=== PATIENT | male | born 1945 | race Caucasian/White ===

== ENCOUNTER 2017-09-14 15:00 | Inpatient (IN) | payer MEDICARE, OTHER ==
[~2017-09-14] VITALS: Ht 177.8 cm; Wt 82.1 kg
[2017-09-14 18:48] VITALS: BP 166/88
[2017-09-14] MEDS ORDERED: MAGNESIUM HYDROXIDE 30 ML LIQUID UDC PO PRN (19:00)
[2017-09-14] MEDS ORDERED: LORAZEPAM 0.5 MG TABLET PO PRN (19:15)
[2017-09-14] MEDS ORDERED: TEMAZEPAM 7.5 MG CAPSULE PO PRN (19:15)
[2017-09-14] MEDS ORDERED: CLONIDINE HCL 0.1 MG TABLET PO PRN (20:45)
[2017-09-14 21:00] VITALS: BP 150/98
[2017-09-14] MEDS: METOPROLOL TARTRATE 25 MG TABLET PO SCH (21:00)
[2017-09-15] MEDS: ACETAMINOPHEN 325 MG TABLET PO PRN (06:45)
[2017-09-15 07:30] VITALS: BP 135/71
[2017-09-15 07:33] LABS: BASOPHILS % (AUTO) 0.2 % (0.0-2.0); EOSINOPHILS % (AUTO) 0.8 % (0.0-7.0); HEMATOCRIT 44.4 % (36.7-47.1); HEMOGLOBIN 15.4 g/dL (12.5-16.3); LYMPHOCYTES # (AUTO) 0.8 K/uL (20.0-40.0); LYMPHOCYTES % (AUTO) 12.6 % (20.5-51.5); MEAN CORPUSCULAR HEMOGLOBIN 35.8 uug (23.8-33.4); MEAN CORPUSCULAR HGB CONC 35 g/dL (32.5-36.3); MEAN CORPUSCULAR VOLUME 103.2 fL (73.0-96.2); MONOCYTES # (AUTO) 0.7 K/uL (2.0-10.0); MONOCYTES % (AUTO) 11.5 % (0.0-11.0); NEUTROPHILS # (AUTO) 4.5 K/uL (1.8-8.9); NEUTROPHILS % (AUTO) 74.9 % (38.5-71.5); PLATELET COUNT (AUTO) 207 K/uL (152-348)
[2017-09-15 07:36] LABS: THYROID STIMULATING HORMONE 1.896 mIU/mL (0.358-3.740)
[2017-09-15 08:03] LABS: ALANINE AMINOTRANSFERASE 17 U/L (16-63); ASPARTATE AMINOTRANSFERASE 20 U/L (15-37); BILIRUBIN,TOTAL 0.8 mg/dL (0.2-1.0); CARBON DIOXIDE 24 mmol/L (21-32); CHLORIDE 96 mmol/L (98-107); CHOLESTEROL 175 mg/dL (<200); GLUCOSE 85 mg/dL (74-106); HDL CHOLESTEROL 61 mg/dL (40-60); MAGNESIUM 1.6 mg/dL (1.8-2.4); PHOSPHOROUS 4.1 mg/dL (2.5-4.9); POTASSIUM 3.7 mmol/L (3.5-5.1); TOTAL PROTEIN, SERUM 7.2 g/dL (6.4-8.2); TRIGLYCERIDES 69 MG/DL (30-150); UREA NITROGEN, BLOOD 11 mg/dL (7-18)
[2017-09-15 09:26] LABS: ALKALINE PHOSPHATASE 47 U/L (50-136)
[2017-09-15] MEDS: METOPROLOL TARTRATE 25 MG TABLET PO SCH (09:55)
[2017-09-15 16:15] VITALS: BP 132/75
[2017-09-15] MEDS: FINASTERIDE 5 MG TABLET PO SCH (16:38)
[2017-09-15] MEDS: METOPROLOL SUCCINATE XL 50 MG TAB.SR.24H PO SCH (16:38)
[2017-09-15] MEDS ORDERED: METFORMIN HCL 500 MG TABLET PO SCH (18:00)
[2017-09-15] MEDS ORDERED: METFORMIN HCL 850 MG TABLET PO SCH (18:00)
[2017-09-15] MEDS: RIVAROXABAN 10 MG TABLET PO SCH (18:12)
[2017-09-15] MEDS: ATORVASTATIN 10 MG TABLET PO SCH (20:03)
[2017-09-15] MEDS: EZETIMIBE 10 MG TABLET PO SCH (20:03)
[2017-09-15 20:23] VITALS: BP 132/71
[2017-09-16 07:30] VITALS: BP 121/76
[2017-09-16] MEDS: FINASTERIDE 5 MG TABLET PO SCH (08:18)
[2017-09-16] MEDS: CYANOCOBALAMIN 1000 MCG/ML VIAL IM SCH (08:18)
[2017-09-16] MEDS: METOPROLOL SUCCINATE XL 50 MG TAB.SR.24H PO SCH (08:22)
[2017-09-16] MEDS ORDERED: METO50TA7 PO (10:13)
[2017-09-16] MEDS ORDERED: RIVA20TA PO (10:13)
[2017-09-16] MEDS ORDERED: FINA5TAB11 PO (10:13)
[2017-09-16] MEDS ORDERED: ROSU10TA PO (10:13)
[2017-09-16] MEDS ORDERED: METF850T2 PO (10:13)
[2017-09-16] MEDS ORDERED: EZET10TA13 PO (10:13)
[2017-09-16 16:02] VITALS: BP 125/68
[2017-09-16] MEDS: RIVAROXABAN 10 MG TABLET PO SCH (17:58)
[2017-09-16 20:29] VITALS: BP 115/65
[2017-09-16] MEDS: EZETIMIBE 10 MG TABLET PO SCH (21:02)
[2017-09-16] MEDS: ATORVASTATIN 10 MG TABLET PO SCH (21:02)
[2017-09-17] MEDS: ACETAMINOPHEN 325 MG TABLET PO PRN (01:07)
[2017-09-17 07:30] VITALS: BP 131/84
[2017-09-17] MEDS: FINASTERIDE 5 MG TABLET PO SCH (08:19)
[2017-09-17] MEDS: CYANOCOBALAMIN 1000 MCG/ML VIAL IM SCH (08:20)
[2017-09-17] MEDS: METOPROLOL SUCCINATE XL 50 MG TAB.SR.24H PO SCH (08:20)
[2017-09-17 15:42] VITALS: BP 110/62
[2017-09-17] MEDS: RIVAROXABAN 10 MG TABLET PO SCH (18:30)
[2017-09-17 20:14] VITALS: BP 138/60
[2017-09-17] MEDS: ATORVASTATIN 10 MG TABLET PO SCH (20:44)
[2017-09-17] MEDS: EZETIMIBE 10 MG TABLET PO SCH (20:44)
[2017-09-18] MEDS: ACETAMINOPHEN 325 MG TABLET PO PRN (03:19)
[2017-09-18 07:30] VITALS: BP 102/61
[2017-09-18] MEDS: CYANOCOBALAMIN 1000 MCG/ML VIAL IM SCH (08:46)
[2017-09-18] MEDS: FINASTERIDE 5 MG TABLET PO SCH (08:50)
[2017-09-18] MEDS: METOPROLOL SUCCINATE XL 50 MG TAB.SR.24H PO SCH (08:50)
[2017-09-18 15:54] VITALS: BP 162/80
[2017-09-18] MEDS: ESCITALOPRAM OXALATE 10 MG TABLET PO SCH (17:13)
[2017-09-18] MEDS: RIVAROXABAN 10 MG TABLET PO SCH (17:14)
[2017-09-18 20:20] VITALS: BP 107/64
[2017-09-18] MEDS: ATORVASTATIN 10 MG TABLET PO SCH (20:27)
[2017-09-18] MEDS: EZETIMIBE 10 MG TABLET PO SCH (20:27)
[2017-09-19 07:30] VITALS: BP 122/50
[2017-09-19] MEDS: ESCITALOPRAM OXALATE 10 MG TABLET PO SCH (08:10)
[2017-09-19] MEDS: ACETAMINOPHEN 325 MG TABLET PO PRN (08:10)
[2017-09-19] MEDS: CYANOCOBALAMIN 1000 MCG/ML VIAL IM SCH (08:10)
[2017-09-19] MEDS: METOPROLOL SUCCINATE XL 50 MG TAB.SR.24H PO SCH (08:10)
[2017-09-19] MEDS: FINASTERIDE 5 MG TABLET PO SCH (08:10)
[2017-09-19 17:08] VITALS: BP 136/69
[2017-09-19] MEDS: RIVAROXABAN 10 MG TABLET PO SCH (18:01)
[2017-09-19] MEDS: EZETIMIBE 10 MG TABLET PO SCH (20:49)
[2017-09-19] MEDS: ATORVASTATIN 10 MG TABLET PO SCH (20:49)
[2017-09-19 20:56] VITALS: BP 133/59
[2017-09-20 07:30] VITALS: BP 137/91
[2017-09-20] MEDS: FINASTERIDE 5 MG TABLET PO SCH (08:17)
[2017-09-20] MEDS: ESCITALOPRAM OXALATE 10 MG TABLET PO SCH (08:17)
[2017-09-20] MEDS: ACETAMINOPHEN 325 MG TABLET PO PRN (08:17)
[2017-09-20] MEDS: CYANOCOBALAMIN 1000 MCG/ML VIAL IM SCH (08:19)
[2017-09-20] MEDS: METOPROLOL SUCCINATE XL 50 MG TAB.SR.24H PO SCH (08:23)
[2017-09-20 15:26] VITALS: BP 152/68
[2017-09-20] MEDS: RIVAROXABAN 10 MG TABLET PO SCH (17:34)
[2017-09-20] MEDS: EZETIMIBE 10 MG TABLET PO SCH (20:10)
[2017-09-20] MEDS: ATORVASTATIN 10 MG TABLET PO SCH (20:10)
[2017-09-20 20:32] VITALS: BP 132/63
[2017-09-21 06:37] LABS: BASOPHILS % (AUTO) 0.5 % (0.0-2.0); EOSINOPHILS # (AUTO) 0.1 K/uL (0.0-0.7); HEMATOCRIT 44.5 % (36.7-47.1); HEMOGLOBIN 15.4 g/dL (12.5-16.3); LYMPHOCYTES # (AUTO) 0.9 K/uL (20.0-40.0); LYMPHOCYTES % (AUTO) 17.2 % (20.5-51.5); MEAN CORPUSCULAR HEMOGLOBIN 35.5 uug (23.8-33.4); MEAN CORPUSCULAR HGB CONC 35 g/dL (32.5-36.3); MEAN CORPUSCULAR VOLUME 102.5 fL (73.0-96.2); MONOCYTES # (AUTO) 0.6 K/uL (2.0-10.0); MONOCYTES % (AUTO) 12.1 % (0.0-11.0); NEUTROPHILS # (AUTO) 3.6 K/uL (1.8-8.9); NEUTROPHILS % (AUTO) 69.2 % (38.5-71.5); PLATELET COUNT (AUTO) 190 K/uL (152-348); RED BLOOD CELL COUNT(AUTO) 4.34 MIL/uL (4.06-5.63); WHITE BLOOD COUNT (AUTO) 5.3 K/uL (3.6-10.2)
[2017-09-21 06:55] LABS: CARBON DIOXIDE 28 mmol/L (21-32); CHLORIDE 98 mmol/L (98-107); CREATININE 1.1 mg/dL (0.6-1.3); GLUCOSE 93 mg/dL (74-106); MAGNESIUM 1.9 mg/dL (1.8-2.4); PHOSPHOROUS 3.5 mg/dL (2.5-4.9); POTASSIUM 3.9 mmol/L (3.5-5.1); UREA NITROGEN, BLOOD 17 mg/dL (7-18)
[2017-09-21 07:30] VITALS: BP 100/64
[2017-09-21] MEDS: ESCITALOPRAM OXALATE 10 MG TABLET PO SCH (08:41)
[2017-09-21] MEDS: FINASTERIDE 5 MG TABLET PO SCH (08:41)
[2017-09-21] MEDS: CYANOCOBALAMIN 1000 MCG/ML VIAL IM SCH (08:41)
[2017-09-21] MEDS ORDERED: METOPROLOL SUCCINATE XL 50 MG TAB.SR.24H PO SCH (09:00)
== END 2017-09-21 15:00 | disposition home health service (06) | DRG 876 ==
LOC: ER 15:03 → GPS 17:52
PROVIDERS: ADMIT Psychiatry & Neurology Psychiatry; ATTEND Internal Medicine
PROC: 0JBR0ZZ Excision of Left Foot Subcutaneous Tissue and Fascia, Open Approach (ICD-10-PCS; principal; 2017-09-15)
DX: F42.3 Hoarding disorder (principal); I11.0 Hypertensive heart disease with heart failure; E11.42 Type 2 diabetes mellitus with diabetic polyneuropathy; E11.51 Type 2 diabetes mellitus with diabetic peripheral angiopathy without gangrene; E87.1 Hypo-osmolality and hyponatremia; E11.621 Type 2 diabetes mellitus with foot ulcer; F32.9 Major depressive disorder, single episode, unspecified; H91.90 Unspecified hearing loss, unspecified ear; E55.9 Vitamin D deficiency, unspecified; M85.80 Other specified disorders of bone density and structure, unspecified site; E78.5 Hyperlipidemia, unspecified; L97.522 Non-pressure chronic ulcer of other part of left foot with fat layer exposed; I50.9 Heart failure, unspecified; L60.3 Nail dystrophy; M21.70 Unequal limb length (acquired), unspecified site; Q66.7 Congenital pes cavus; E83.42 Hypomagnesemia; E66.3 Overweight; Z68.26 Body mass index [BMI] 26.0-26.9, adult; Z71.3 Dietary counseling and surveillance; E53.8 Deficiency of other specified B group vitamins; B91 Sequelae of poliomyelitis; Z79.01 Long term (current) use of anticoagulants; Z79.84 Long term (current) use of oral hypoglycemic drugs
CPT/HCPCS: 36415; 71045; 73630; 83735; 84100; 84443; 85025; 93005; A4663; J3420